=== PATIENT | male | born 1945 | race Caucasian/White ===

== ENCOUNTER 2017-05-27 14:01 | Emergency (ER) | payer OTHER, BC ==
[~2017-05-27] VITALS: Ht 180.3 cm; Wt 84.6 kg
[2017-05-27 14:36] LABS: BASOPHIL (%) 0.2 % (0-1); EOSINOPHIL (%) 1.5 % (0-5); EOSINOPHIL COUNT 0.2 K/uL (0-0.3); HEMATOCRIT 29.4 % (38.0-50.0); HEMOGLOBIN 9.7 G/DL (12.5-16.6); IMMATURE GRANULOCYTE (%) 0.9 % (0.0-0.7); LYMPHOCYTE (%) 7.4 % (15-42); LYMPHOCYTE COUNT 0.9 K/uL (1.0-2.8); MCH 29.1 PG (29.0-34.0); MCV 88.3 FL (86-99); MONOCYTE (%) 6.9 % (3-12); MONOCYTE COUNT 0.9 K/uL (0-0.8); NEUTROPHIL (%) 83.1 % (45-76); NEUTROPHIL COUNT 10.5 K/uL (1.8-6.4); PLATELET COUNT 216 K/uL (156-360); RBC DIS.WIDTH-CV 12.9 % (11.8-14.6); RBC DIS.WIDTH-SD 42.1 % (39-53); RED BLOOD COUNT 3.33 M/uL (4.00-5.50); WHITE BLOOD COUNT 12.6 K/uL (4.1-10.2)
[2017-05-27 14:44] LABS: CHLORIDE 102 mEq/L (99-109); INTER. NORMALIZED RATIO 1.2; POTASSIUM 4.5 mEq/L (3.7-5.4); SODIUM 135 mEq/L (136-147)
[2017-05-27 14:46] LABS: GLUCOSE 134 mg/dL (70-99)
[2017-05-27 14:47] LABS: PTT 26.9 SEC (25-37)
[2017-05-27 14:50] LABS: CREATININE 0.7 mg/dL (0.6-1.3); GFR ESTIMATE (CALCULATED) > 59 mL/min/ (58.99-99999)
[2017-05-27 14:51] LABS: UREA NITROGEN (BUN) 12 mg/dL (9-23)
[2017-05-27 14:57] LABS: TROP-I INTERPRETATION NEGATIVE; TROPONIN-I < 0.01 ng/mL (0.0-0.30)
[2017-05-27 17:15] VITALS: BP 122/84
== END 2017-05-27 17:17 | disposition left against medical advice (07) ==
LOC: EME 14:01
PROVIDERS: Emergency Medicine
DX: R55 Syncope and collapse (principal); Z96.642 Presence of left artificial hip joint; Z87.891 Personal history of nicotine dependence
CPT/HCPCS: 71045; 80048; 84484; 85025; 85379; 85610; 85730; 93005; 99281; 99285; J7030